=== PATIENT | female | born 1990 | race Two or more races ===

== ENCOUNTER 2018-01-12 23:51 | Emergency (ER) | payer MEDICAID ==
--- NOTE | 2018-01-13 00:07 | EDPHY ---
H & P Time Seen by Provider: 01/12/18 23:58 HPI/ROS: CC: epigastric pain HPI: This 27 y/o female with PMH on PCOS and s/p Cholecystectomy presents to the ED with c/o upper abdominal pain over the last 3 -4 days. The pain has been constant, waxes and wanes and associated with nausea and occasional vomiting. The pain is dull and she rates it at 7/10. She has tried over-the- counter medication without relief. No aggravating or alleviating factors. She has had decreased oral intake due to the discomfort. She denies headache, dizziness, sore throat, cough, shortness of breath, chest pain, constipation, diarrhea, or dysuria. REVIEW OF SYSTEMS: Constitutional: No fever, no chills. Eyes: No discharge. ENT: No sore throat. Respiratory: No cough, no shortness of breath. Cardiac: No chest pain, no palpitations. Gastrointestinal: See HPI. Genitourinary: No hematuria. Musculoskeletal: No back pain. Skin: No rashes. Neurological: No headache. Source: Patient Exam Limitations: No limitations - Medical/Surgical History PMH: PMH: polycystic ovarian syndrome, obesity PSH: Cholecystectomy 2 years ago FH: adopted NKDA Medications: metformin 1000mg per day started 4 weeks ago. Women's vitamin Social: No tobacco products, no ETOH, no illicit drugs. . No children. 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 Obese. Eyes: Pupils equal and round no pallor or injection. ENT, Mouth: Mucous membranes are moist. No pharyngeal erythema. Respiratory: There are no retractions, lungs are clear to auscultation. Cardiovascular: Regular rate and rhythm. No M/G/R. Gastrointestinal: obese, soft, minimal epigastric tenderness to palpation. No R/G/R. BS normal. Neurological: Awake and alert, sensory and motor exams grossly normal. Skin: Warm and dry, no rashes. Musculoskeletal: Neck is supple, nontender. Extremities are symmetrical, full range of motion. No calf swelling or tenderness. Psychiatric: Patient is oriented X 3, there is no agitation. DIFFERENTIAL DIAGNOSIS: After history and physical exam differential diagnosis was considered for but not limited to: nausea, vomiting, gastritis, viral syndrome, pancreatitis, GERD, medication adverse reaction, Constitutional: Initial Vital Signs Temperature (C) 98.4 F 01/13/18 00:04 Heart Rate 78 01/13/18 00:04 Respiratory Rate 16 01/13/18 00:04 Blood Pressure 143/82 H 01/13/18 00:04 O2 Sat (%) 93 01/13/18 00:04 O2 Delivery Mode Room Air Allergies/Adverse Reactions: No Known Allergies Allergy (Verified 01/12/18 23:52) Home Medications: Medication Instructions Recorded Pnv #87/Iron Bisgly/FA/Dha 04/09/11 Metformin HCl 01/12/18 Medical Decision Making ED Course/Re-evaluation: The patient was seen and examined. VS reviewed. Her CBC was normal. CMP with borderline creatinine of 1.1. Lipase was normal. Urine negative and UA probably contaminated. She was given IVF, Zofran, Pepcid, a GI cocktail as well as Toradol. She continued to have upper abdominal discomfort and was able to contact her to drive her home, so she was given Morphine with good result. I do not feel imaging is indicated at this time. She will follow up with her primary care provider within the next few days or return to the ED sooner if symptoms persist, change, or worsen as discussed. - Data Points Medications Given: Discontinued Medications Al Hydroxide/Mg Hydroxide (Maalox Susp) 30 ml PO EDNOW ONE Stop: 01/13/18 01:21 Last Admin: 01/13/18 01:27 Dose: 30 ml Famotidine (Pepcid) 20 mg IVP EDNOW ONE Stop: 01/13/18 01:21 Last Admin: 01/13/18 01:27 Dose: 20 mg Sodium Chloride (Ns) 1,000 mls @ 0 mls/hr IV ONCE ONE; Wide Open PRN Reason: Protocol Stop: 01/13/18 00:30 Last Admin: 01/13/18 00:39 Dose: 1,000 mls Ketorolac Tromethamine (Toradol) 15 mg IVP EDNOW ONE Stop: 01/13/18 00:30 Last Admin: 01/13/18 00:39 Dose: 15 mg Lidocaine (Lidocaine 2% Viscous) 5 ml PO EDNOW ONE Stop: 01/13/18 01:21 Last Admin: 01/13/18 01:27 Dose: 5 ml Morphine Sulfate (Morphine) 4 mg IVP EDNOW ONE Stop: 01/13/18 02:08 Last Admin: 01/13/18 02:12 Dose: 4 mg Ondansetron HCl (Zofran) 4 mg IVP EDNOW ONE Stop: 01/13/18 00:30 Last Admin: 01/13/18 00:39 Dose: 4 mg Ondansetron HCl (Zofran) 4 mg IVP EDNOW ONE Stop: 01/13/18 01:38 Last Admin: 01/13/18 01:41 Dose: 4 mg Ondansetron HCl (Zofran) 4 mg IVP EDNOW ONE Stop: 01/13/18 01:38 Last Admin: 01/13/18 01:42 Dose: Not Given Ondansetron HCl (Zofran Odt 4 Mg Prepack#2) 1 btl TAKEHOME EDNOW ONE Stop: 01/13/18 02:31 Last Admin: 01/13/18 02:36 Dose: 1 btl Point of Care Test Results: CBC CBC Collection Date 01/13/18 CBC Collection Time 00:10 WBC 6.8 RBC 4.85 HGB 14 HCT 40.9 PLT 256 Neut # 3.3 Neut 48.3 LYMPH # 3.2 LYMPH 47.2 Other WBC # 0.3 Other WBC 4.5 MCV 84.3 Chemistry 01/13/18 00:15 POC Sodium 141 mEq/L mEq/L (135-145) POC Potassium 3.6 mEq/L mEq/L (3.3-5.0) POC Chloride 102.0 mEq/L mEq/L (97-110) POC Total CO2 25 mEq/L mEq/L (22-31) POC BUN 6 mg/dL L mg/dL (7-23) POC Creatinine 1.1 mg/dL H mg/dL (0.6-1.0) POC Glucose 142 mg/dL H mg/dL (70-100) POC Calcium 9.4 mg/dL mg/dL (8.5-10.4) POC Total Bilirubin 0.5 mg/dL mg/dL (0.1-1.4) POC AST 26 IU/L IU/L (14-46) POC ALT 25 IU/L IU/L (9-52) POC Alk Phosphatase 123 IU/L IU/L (38-126) POC Total Protein 7.7 g/dL g/dL (6.3-8.2) POC Albumin 3.5 g/dL g/dL (3.5-5.0) Urine Collection Date 01/13/18 Collection Time 00:30 HCG Results Negative Urine Dip Collection Date 01/13/18 Collection Time 00:45 Specific [place] (1.002-1.030) 1.025 PH (5.0-7.5) 5.5 Leukocytes (Negative) 2+ Nitrites (Negative) Negative Protein (Negative) Negative Glucose (Negative) Negative Ketones (Negative) Negative Urobilnogen (0.2-1.0 EU) 0.2 Bilirubin (Negative) Negative Blood (Negative) Negative Departure - Departure Disposition: Home, Routine, Self-Care Clinical Impression: Abdominal pain Condition: Good Instructions: Ondansetron (By mouth), Acute Abdominal Pain (ED) Additional Instructions: Follow up with your primary care provider early this coming week. You should also have your kidney function tests repeated in the near future (Creatinine). Return to the ER sooner if symptoms change or worsen as discussed. Referrals: [facility],. [Clinic] - As per Instructions
[2018-01-13] MEDS ORDERED: NS 1,000 ML IV ONE (00:29)
[2018-01-13] MEDS ORDERED: ONDANSETRON 4 MG/2 ML VIAL IVP ONE ×3 (00:29→01:37)
[2018-01-13] MEDS ORDERED: KETOROLAC 15 MG/1 ML SDV IVP ONE (00:29)
[2018-01-13] MEDS ORDERED: MAG HYDROX/AL HYDROX/SIMETH 30 ML UDCUP PO ONE (01:20)
[2018-01-13] MEDS ORDERED: FAMOTIDINE 20 MG/2 ML SDV IVP ONE (01:20)
[2018-01-13] MEDS ORDERED: LIDOCAINE 2% VISCOUS 15 ML UDCUP PO ONE (01:20)
[2018-01-13 02:19] VITALS: BP 139/78
[2018-01-13] MEDS ORDERED: ONDANSETRON 4MG PREPACK#2 BTL TAKEHOME ONE ×2 (02:30→02:34)
== END 2018-01-13 02:50 | disposition home or self-care (01) ==
LOC: CED 23:51
DX: R10.13 Epigastric pain (principal); E86.9 Volume depletion, unspecified
CPT/HCPCS: 80053-PO; 96374; J1885; J2270; J2405

== ENCOUNTER 2018-05-14 13:17 | Emergency (ER) | payer MEDICAID ==
[2018-05-14 13:34] VITALS: BP 154/97
--- NOTE | 2018-05-14 14:07 | EDPHY ---
H & P Stated Complaint: low abd pain/pelvic pain . freq urination. Time Seen by Provider: 05/14/18 13:39 HPI/ROS: Chief Complaint: Pelvic pain HPI: 28-year-old woman is with a history of polycystic ovarian syndrome presenting with 2 days of left lower pelvic pain. Waxes and wanes. Mild improvement with ibuprofen. No vaginal discharge or bleeding. Last menstrual cycle was April 02. Some urinary frequency but she has been drinking more water recently. No urgency or dysuria. She has a history of UTIs in the past but this does not feel similarly. Pain is not radiating. There are no aggravating or alleviating factors. No nausea vomiting. No diarrhea or constipation. ROS: 10 systems were reviewed and were negative except those elements noted in the HPI. PMH: PCOS Social History: No smoking, no alcohol, no recreational drug use Family History: non-contributory Physical Exam: Gen: Awake, Alert, No Distress HEENT: Nose: no rhinorrhea Eyes: PERRLA, EOMI Mouth: Moist mucosa Neck: Supple, no JVD Chest: nontender, lungs clear to auscultation Heart: S1, S2 normal, no murmur Abd: Obese, Soft, non-tender, mild left adnexal tenderness, no midline tenderness. No right-sided abdominal or pelvic tenderness Back: no CVA tenderness, no midline tenderness Ext: no edema, non-tender Skin: no rash Neuro: CN II-XII intact, Sensation grossly intact, Strength 5/5 in bilateral upper and lower extremities - Personal History LMP (Females 10-55): Over 28 Days Ago Current Tetanus Diphtheria and Acellular Pertussis (TDAP): Yes - Medical/Surgical History Hx Asthma: No Hx Chronic Respiratory Disease: No Hx Diabetes: No Hx Cardiac Disease: No Hx Renal Disease: No Hx Cirrhosis: No Hx Alcoholism: No Hx HIV/AIDS: No Hx Splenectomy or Spleen Trauma: No Other PMH: PCOS, Cholecystomy. - Social History Smoking Status: Former smoker Constitutional: Initial Vital Signs Temperature (C) 36.9 C 05/14/18 13:24 Heart Rate 80 05/14/18 13:24 Respiratory Rate 18 05/14/18 13:24 Blood Pressure 154/97 H 05/14/18 13:24 O2 Sat (%) 93 05/14/18 13:24 O2 Delivery Mode Room Air Allergies/Adverse Reactions: No Known Allergies Allergy (Verified 05/14/18 13:29) Home Medications: Medication Instructions Recorded Metformin HCl 01/12/18 Multivitamin 05/14/18 Nitrofurantoin Monohyd/M-Cryst 100 mg PO BID #10 capsule 05/14/18 [Macrobid 100 mg Capsule] Medical Decision Making ED Course/Re-evaluation: Ultrasound is negative. Urinalysis does show some mild leuk esterase and blood consistent with possible UTI. Will treat with Macrobid. She is . Will refer for OBGYN outpatient follow-up. - Data Points Point of Care Test Results: Urine Collection Date 05/14/18 Collection Time 13:35 HCG Results Negative Urine Dip Collection Date 05/14/18 Collection Time 13:35 Specific [place] (1.002-1.030) 1.015 PH (5.0-7.5) 6.0 Leukocytes (Negative) 1+ Nitrites (Negative) Negative Protein (Negative) Negative Glucose (Negative) Negative Ketones (Negative) Negative Urobilnogen (0.2-1.0 EU) 0.2 Bilirubin (Negative) Negative Blood (Negative) Trace Departure - Departure Disposition: Home, Routine, Self-Care Clinical Impression: Urinary tract infection Condition: Good Instructions: Urinary Tract Infection in Women (ED) Additional Instructions: Follow up with OBGYN in about a week for recheck. Take ibuprofen, 600 mg every 8 hr. You may alternate with acetaminophen, 1000 mg every 8 hr. Please take your full course of antibiotics. Referrals: Connie Busby MD [Medical Doctor] - As per Instructions Prescriptions: Nitrofurantoin Monohyd/M-Cryst [Macrobid 100 mg Capsule] 100 mg PO BID #10 capsule
== END 2018-05-14 14:37 | disposition home or self-care (01) ==
LOC: CED 13:17
DX: N39.0 Urinary tract infection, site not specified (principal); Z90.49 Acquired absence of other specified parts of digestive tract
CPT/HCPCS: 76856-PO; 99284-ER

== ENCOUNTER 2018-08-09 00:48 | Emergency (ER) | payer MEDICAID ==
--- NOTE | 2018-08-09 01:13 | EDPHY ---
H & P Time Seen by Provider: 08/09/18 00:58 HPI/ROS: Chief complaint: Vulvar irritation for 1 week, sore throat HPI: 20-year-old female with PCOS. As such she has intermittent periods in the 1st place. Her last menstrual period was 2 months ago. For the last week she has had some perineal irritation. Denies any fevers or chills. There has been some frequency and nocturia. There has been no flank pain or nausea vomiting or diarrhea. Today, she has felt she has had a fever. She has been taking Tylenol alternating with ibuprofen as she has had a sore throat. There are younger children in the household who have a sore throat who tested positive for strep. She has not had a cough, but she does have headache. She did not get seasonal influenza vaccination. ROS: Constitutional - no fevers or chills. Eyes - no discharge, or injection ENT - no earache, change in hearing, difficulty swallowing, sore throat. Respiratory - No Shortness of breath, phlegm, wheezing or pleuritic chest pain. Musculoskeletal - no joint or muscle pain. Integument - no rashes. Neurological - no headache, numbness, tingling, or paresthesias. No focal motor weakness. Immunological - no swelling or lymphadenopathy A 10 system review of systems was performed and is negative except for the noted findings in the HPI. Smoking Status: Former smoker Physical Exam: Gen: Well developed, well nourished. Nontoxic. Low-grade fever of 37.5 VSS, morbidly obese. HEENT: Normocephalic. Ears: TMs are clear. Hearing normal. Eyes: PERRL. No conjunctival injection or pallor. no jaundice. Nose: No nasal discharge. Sinuses are nontender. Throat: Membranes are moist. Oropharynx is slightly red but no exudate. Normal phonation. Neck: Trachea is in the ML. No laryngeal tenderness. No adenopathy. Skin: Good color, without pallor. There is no diaphoresis. Skin is warm and dry , without diaphoresis. Back: No CVA tenderness Constitutional: Initial Vital Signs Temperature (C) 37.5 C 08/09/18 00:54 Heart Rate 104 H 08/09/18 00:54 Respiratory Rate 20 08/09/18 00:54 Blood Pressure 140/95 H 08/09/18 00:54 O2 Sat (%) 94 08/09/18 00:54 Allergies/Adverse Reactions: No Known Allergies Allergy (Verified 08/09/18 00:54) Home Medications: Medication Instructions Recorded Penicillin V Potassium 500 mg PO BID #20 tablet 08/09/18 Medical Decision Making ED Course/Re-evaluation: Though she does not have much of a red throat, due to the exposure of the multiple family members she 2 will get penicillin. Differential Diagnosis: Diagnostic considerations include, but are not limited to, the following: URI, sinusitis, pharyngitis, otitis media, pneumonia, allergy, influenza, strep throat, cystitis. - Data Points Medications Given: Discontinued Medications Penicillin V Potassium (Pen Vk 250 Mg Prepack#6) 1 btl TAKEHOME EDNOW ONE PRN Reason: Protocol Stop: 08/09/18 01:41 Last Admin: 08/09/18 01:55 Dose: 1 btl Point of Care Test Results: Urine Collection Date 08/09/18 Collection Date 08/09/18 Collection Time 01:10 Collection Time 01:08 HCG Results Negative HCG Results Negative Urine Dip Collection Date 08/09/18 Collection Time 01:08 Specific [place] (1.002-1.030) 1.020 PH (5.0-7.5) 6.0 Leukocytes (Negative) Trace Nitrites (Negative) Negative Protein (Negative) Negative Glucose (Negative) Negative Ketones (Negative) Negative Urobilnogen (0.2-1.0 EU) 0.2 Bilirubin (Negative) Negative Blood (Negative) Negative Departure - Departure Disposition: Home, Routine, Self-Care Clinical Impression: Acute pharyngitis Qualifiers: Pharyngitis/tonsillitis etiology: streptococcus Qualified Code(s): J02.0 - Streptococcal pharyngitis Condition: Good Instructions: Penicillin V (By mouth), Strep Throat (ED) Additional Instructions: Continue with Advil or Tylenol for the fever and discomfort. Prescriptions: Penicillin V Potassium 500 mg PO BID #20 tablet
[2018-08-09] MEDS ORDERED: PENICILLIN VK 250MG PREPACK#6 BTL TAKEHOME ONE (01:40)
[2018-08-09 01:57] VITALS: BP 140/65
== END 2018-08-09 01:57 | disposition home or self-care (01) ==
LOC: CED 00:48
DX: J02.0 Streptococcal pharyngitis (principal)
CPT/HCPCS: 81025-ER; 99283-ER

== ENCOUNTER 2018-08-10 22:31 | Emergency (ER) | payer MEDICAID ==
[2018-08-10] MEDS ORDERED: traMADol 50 MG TAB PO ONE (23:26)
[2018-08-10] MEDS ORDERED: PENICILLIN VK 500 MG TAB PO ONE (23:26)
[2018-08-10 23:52] VITALS: BP 142/90
--- NOTE | 2018-08-11 00:22 | EDPHY ---
H & P Time Seen by Provider: 08/10/18 22:56 HPI/ROS: This patient presents with throat pain. She was seen here yesterday with history of pharyngitis and family members with documented strep pharyngitis within the past 24 hr. She was diagnosed clinically with strep pharyngitis started on penicillin 500 twice daily and reports compliance with that having had 3 doses so far. However, she reports 8/10 pain in her throat despite taking 800 mg of ibuprofen and a 1000 mg of Tylenol 2 and 0.5 hr prior to arrival. She has associated fevers, myalgias and fatigue. ROS: Constitutional: As per HPI-fevers and fatigue HEENT: No significant nasal congestion or sinus pain Pulmonary: occas. dry cough without any other pulmonary symptoms. Cardiovascular: No lightheadedness. GI: No vomiting. Musculoskeletal: No joint pain. She does have myalgias. Integumentary: No skin rash 7 point review of symptoms is performed and otherwise negative with exception of pertinent positives and negatives listed in HPI and ROS Smoking Status: Former smoker Physical Exam: Physical Exam Vital signs are normal. General: Pleasant morbidly obese female No acute distress HEENT: Nose: Clear discharge bilaterally. No sinus tenderness to percussion. Ears: External canals and tympanic membranes are clear with no erythema or abnormal findings bilaterally. Oropharynx: Moderate erythema with mild exudates bilateral tonsils-slight tonsillar swelling. No dysphonia. No drooling or stridor. Eyes: Pupils equal and react to light. Extraocular motions are intact. Neck: Supple with no meningismus. No lymphadenopathy Lungs: Clear to auscultation bilaterally with no rales, rhonchi or wheeze. No respiratory distress. Cardiac: Regular rate and rhythm with no murmur gallop or rub Skin: No rash or pallor. Neuro: Alert with no focal deficits noted. Constitutional: Initial Vital Signs Temperature (C) 37.7 C 08/10/18 22:38 Heart Rate 102 H 08/10/18 22:38 Respiratory Rate 16 08/10/18 22:38 Blood Pressure 176/106 H 08/10/18 22:38 O2 Sat (%) 94 08/10/18 22:38 O2 Delivery Mode Room Air Allergies/Adverse Reactions: morphine Allergy (Intermediate, Verified 08/10/18 22:38) pruitic skin Home Medications: Medication Instructions Recorded Penicillin V Potassium 500 mg PO BID #20 tablet 08/09/18 Mbx Soln;Maalox/Diphen/Lido 5 - 15 ml PO PRN PRN #150 ml 08/10/18 [Maalox/Diphenhydramine/Lido] Penicillin V Potassium [Penicillin 1,000 mg PO BID #20 tab 08/10/18 VK] traMADol [Ultram 50 mg (*)] 50 - 100 mg PO Q4 PRN #20 tab 08/10/18 MDM/Departure - [facility] ED Course/Re-evaluation: Discussion: This patient has quite a large has a large volume of distribution given her body habitus. I think she warrants a larger dose of penicillin and standard dosing because of this consideration. She is taking appropriate ibuprofen Tylenol doses but still quite uncomfortable. Will plan to prescribe MD exclusion in addition and tramadol if needed for pain that prevents sleep. Will increase her penicillin dose to a 1000 mg twice daily. Her exam does appear classic for strep pharyngitis/tonsillitis. I counseled regarding this. She does not clinically have evidence currently that would suggest peritonsillar abscess, Clint's angina or other complicating factors. We gave her a 1000 mg dose of penicillin here. She understands need to return emergency department should she develop any significant worsening despite treatment plan. - Depart Disposition: Home, Routine, Self-Care Clinical Impression: Pharyngitis Qualifiers: Pharyngitis/tonsillitis etiology: unspecified etiology Qualified Code(s): J02.9 - Acute pharyngitis, unspecified Condition: Good Instructions: Strep Throat (ED) Additional Instructions: Diagnosis: Strep pharyngitis Plan: Increase penicillin dose of 1000 mg twice daily MDX solution for throat pain despite ibuprofen Tylenol Tramadol in addition if needed for pain that prevents sleep. Return for any significant worsening despite treatment plan.
== END 2018-08-10 23:50 | disposition home or self-care (01) ==
LOC: CED 22:31
DX: J02.9 Acute pharyngitis, unspecified (principal)
CPT/HCPCS: 99284-ER

== ENCOUNTER 2018-10-13 22:38 | Emergency (ER) | payer MEDICAID | END 2018-10-13 23:41 | disposition home or self-care (01) | LOC: CED 22:38 ==